=== PATIENT | male | born 1935 | race Two or more races ===

== ENCOUNTER 2022-09-19 22:17 | Inpatient (IN) | payer OTHER ==
[~2022-09-19] VITALS: Ht 167.6 cm; Wt 81.2 kg
[2022-09-19] MEDS ORDERED: LASIX20 MG (22:52)
--- NOTE | 2022-09-19 22:55 | NUR ---
SE RECIBE PACIENTE ALERTA EN AMBULANCIA EN COMPANIA DE FAMILIAR QUIEN REFIERE QUE VIENEN DEL [facility] POR PARTE DEK
--- NOTE | 2022-09-19 22:56 | NUR ---
SE RECIBE PACIENTE ALERTA EN AMBULANCIA EN COMPANIA DE FAMILIAR QUIEN REFIERE QUE VIENEN DEL [facility] POR PARTE DEL DR. CHRISTIE. PACIENTE CON DIAGNOSTICO DE ENCEFALOPATIA HEAPTICA. PACIENTE PREVIAMENTE CANALIZADO CON ANGIO #[address] EN [facility]. SE GREG VS, SE PRESENTA A DR. GUZMAN Y SE UBICA EN [place].
== END 2022-09-24 21:21 | disposition home or self-care (01) | DRG 434 ==
LOC: ER 22:17 → MEDJ 09-20 06:58
PROVIDERS: ADMIT Internal Medicine; ATTEND Internal Medicine
PROC: 0W9G3ZZ Drainage of Peritoneal Cavity, Percutaneous Approach (ICD-10-PCS; principal; 2022-09-20)
PROC: BW28ZZZ Computerized Tomography (CT Scan) of Head (ICD-10-PCS; 2022-09-20)
PROC: BW21ZZZ Computerized Tomography (CT Scan) of Abdomen and Pelvis (ICD-10-PCS; 2022-09-20)
DX: K74.69 Other cirrhosis of liver (principal); K76.89 Other specified diseases of liver; I10 Essential (primary) hypertension; I87.2 Venous insufficiency (chronic) (peripheral); K76.82 Hepatic encephalopathy; Z20.822 Contact with and (suspected) exposure to COVID-19